=== PATIENT | female | born 1985 | race Caucasian/White ===

== ENCOUNTER 2019-07-30 22:14 | Emergency (ER) | payer MEDICAID ==
[~2019-07-30] VITALS: Ht 172.7 cm; Wt 75.0 kg
[2019-07-30] MEDS ORDERED: IBUPROFEN 600MG TABLET PO STA (23:10)
[2019-07-30 23:27] VITALS: BP 120/80
== END 2019-07-30 23:28 | disposition home or self-care (01) ==
LOC: ER 22:14
DX: L02.412 Cutaneous abscess of left axilla (principal)
CPT/HCPCS: 99283

== ENCOUNTER 2019-07-31 21:56 | Emergency (ER) | payer MEDICAID ==
[~2019-07-31] VITALS: Ht 175.3 cm; Wt 74.8 kg
[2019-08-01] MEDS ORDERED: IBUPROFEN 600MG TABLET PO ONE (00:45)
[2019-08-01] MEDS ORDERED: LIDOCAINE 1%/EPI 1:100,000 10 ML VIAL IJ ONE (00:45)
[2019-08-01] MEDS ORDERED: LIDOCAINE HCL/EPINEPHRINE 1%-EPI 1:100,000 20 ML VIAL INFIL SCH (01:15)
[2019-08-01] MEDS ORDERED: BACITRACIN ZINC OINT UDPKT TOP ONE (02:15)
[2019-08-01 02:49] VITALS: BP 121/72
== END 2019-08-01 02:54 | disposition home or self-care (01) ==
LOC: ER 21:56
DX: L02.412 Cutaneous abscess of left axilla (principal)
CPT/HCPCS: 10060; 99283; J3490